=== PATIENT | female | born 1955 | race Caucasian/White ===

== ENCOUNTER 2020-01-03 09:21 | Day surgery (SDC) | payer OTHER ==
[~2020-01-03 09:21] MED LIST: Midazolam 1 MG/ML 2 ML SDV ONE; Propofol 200 MG/20 ML SDV ONE; fentaNYL 100 MCG/2 ML SDV ONE
[2020-01-03] MEDS ORDERED: Sodium Chloride 0.9% 1,000 ML IV SCH (10:00)
--- NOTE | 2020-01-03 12:12 | OR ---
DATE OF PROCEDURE: 01/03/2020 SURGEON: Simon Edwards MD PROCEDURE: Colonoscopy. FINDINGS: 1. Normal colonoscopy. 2. No etiology for gastrointestinal bleeding. COMPLICATIONS: None. WAITER: None. ANESTHESIA: MAC. PREOPERATIVE DIAGNOSIS: Gastrointestinal bleeding. POSTOPERATIVE DIAGNOSIS: Gastrointestinal bleeding. RISKS: Risks, benefits, alternatives, and limitations including, but not limited to infection, bleeding, and perforation were explained to the patient, who wished to proceed. PROCEDURE IN DETAIL: The patient was placed in a left lateral decubitus position. The digital rectal exam was performed without abnormality. Scope was introduced and advanced atraumatically to the ileocecal valve. Scope was brought back through the ascending, transverse, descending colon, and retroflexed. No evidence of old or new blood. No masses. No polyps. No diverticula. No evidence of colitis. No abnormalities on retroflexion. The patient tolerated the procedure well. Simon Edwards MD /[id number]
== END 2020-01-03 11:32 | disposition home or self-care (01) ==
LOC: JP.SDS 09:21
PROVIDERS: ATTEND Surgery
DX: K92.2 Gastrointestinal hemorrhage, unspecified (principal); F17.200 Nicotine dependence, unspecified, uncomplicated; F41.9 Anxiety disorder, unspecified
CPT/HCPCS: 45378; J2250; J2704; J3010; J7030